=== PATIENT | male | born 1960 ===

== ENCOUNTER 2021-03-18 10:36 | Inpatient (IN) | payer OTHER ==
[~2021-03-18] VITALS: Ht 185.5 cm; Wt 163.6 kg
[2021-03-18 11:35] LABS: HEMATOCRIT 45 % (40-54); HEMOGLOBIN 14.4 g/dL (13.3-17.7); MEAN CORPUSCULAR HEMOGLOBIN 27 pg (25-34); MEAN CORPUSCULAR HGB CONC 32 g/dL (32-36); MEAN CORPUSCULAR VOLUME 85 fL (80-99); MEAN PLATELET VOLUME 8.6 fL (9.0-12.2); PLATELET COUNT 324 10^3/uL (130-400); WHITE BLOOD COUNT 14.8 10^3/uL (4.3-11.0)
[2021-03-18 11:37] LABS: ALBUMIN 4.1 GM/DL (3.2-4.5); CHLORIDE 103 MMOL/L (98-107); POTASSIUM 4.5 MMOL/L (3.6-5.0); SODIUM 139 MMOL/L (135-145)
[2021-03-18 11:38] LABS: CALCIUM 9.5 MG/DL (8.5-10.1)
[2021-03-18 11:40] LABS: GLUCOSE 284 MG/DL (70-105); TOTAL PROTEIN 7.7 GM/DL (6.4-8.2)
[2021-03-18 11:41] LABS: BILIRUBIN,TOTAL 0.5 MG/DL (0.1-1.0); CARBON DIOXIDE 24 MMOL/L (21-32)
[2021-03-18 11:43] LABS: ALKALINE PHOSPHATASE 58 U/L (40-136)
[2021-03-18 11:44] LABS: CREATININE SERUM 1.07 MG/DL (0.60-1.30); GFR ESTIMATED 70
[2021-03-18 11:45] LABS: BILIRUBIN,DIRECT 0.2 MG/DL (0.0-0.3); BILIRUBIN,INDIRECT 0.3 MG/DL; BUN/CREATININE RATIO 13
[2021-03-18] MEDS ORDERED: fentaNYL INJ 100 MCG/2 ML AMP IVP ONE ×5 (11:45→15:30)
[2021-03-18] MEDS ORDERED: HOLD METFORMIN - RECEIVED CONTRAST 20 ML VIAL IV SCH ×2 (11:45→12:15)
[2021-03-18] MEDS ORDERED: NS 100 ML (IVPB) BAG IV ONE ×2 (11:45→12:15)
[2021-03-18] MEDS ORDERED: CATHETER FLUSH 10 ML SYR IV PRN ×3 (11:45→15:45)
[2021-03-18] MEDS ORDERED: IOHEXOL 350 MG/ML 100 ML (OMNIPAQUE 350) VIAL IV ONE ×2 (11:45→12:15)
[2021-03-18 11:46] LABS: ALANINE AMINOTRANSFERASE 36 U/L (0-55)
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
[2021-03-18 13:32] LABS: BILIRUBIN,URINE NEGATIVE (NEGATIVE); CLARITY,URINE CLEAR; COLOR,URINE YELLOW; GLUCOSE, URINE (UA) 3+ (NEGATIVE); KETONES,URINE NEGATIVE (NEGATIVE); LEUKOCYTE ESTERASE ,URINE NEGATIVE (NEGATIVE); NITRITE,URINE NEGATIVE (NEGATIVE); PH,URINE 5.5 (5-9); PROTEIN,URINE NEGATIVE (NEGATIVE)
[2021-03-18] MEDS ORDERED: ONDANSETRON 4 MG/2 ML (SDV) Z0FRAN IVP ONE (14:00)
[2021-03-18 14:14] LABS: RBC,URINE RARE /HPF
[2021-03-18 14:15] LABS: BACTERIA,URINE TRACE /HPF; SQUAMOUS EPITHELIAL CELL,UR 0-2 /HPF
[2021-03-18 14:22] LABS: HYALINE CASTS, URINE RARE /LPF
[2021-03-18 15:30] VITALS: BP 160/78
[2021-03-18] MEDS: HYDROcodone/APAP 5 MG/325 MG (LORTAB) TAB PO SCH ×3 (15:52→23:55)
[2021-03-18] MEDS: LACTATED RINGERS 1,000 ML IV SCH (15:54)
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
[2021-03-18] MEDS: fentaNYL INJ 100 MCG/2 ML AMP IV PRN ×4 (17:36→23:56)
[2021-03-18 20:00] VITALS: BP 116/81
[2021-03-18] MEDS: inSUlin ASPART (NovoLOG) 1 UNIT/0.01 ML (CHARGE PER UNIT) SC SCH ×2 (20:35→21:18)
[2021-03-18 21:03] VITALS: BP 148/80
[2021-03-18] MEDS ORDERED: RT-ALBUTEROL SULF 2.5 MG/3 ML PRE-MIX VIAL INH PRN (21:15)
[2021-03-18] MEDS: ENOXAPARIN 40 MG/0.4 ML (LOVENOX) SYR SC SCH (21:17)
[2021-03-19] VITALS (16 sets, daily range): BP systolic 89–159; BP diastolic 65–89
[2021-03-19] MEDS: fentaNYL INJ 100 MCG/2 ML AMP IV PRN ×10 (01:44→20:19)
[2021-03-19] MEDS: RT-ALBUTEROL SULF 2.5 MG/3 ML PRE-MIX VIAL INH SCH ×4 (02:56→21:43)
[2021-03-19 03:01] LABS: BASOPHILS % (AUTO) 0 % (0-10); EOSINOPHILS # (AUTO) 0.1 10^3/uL (0.0-0.3); EOSINOPHILS % (AUTO) 1 % (0-10); HEMATOCRIT 42 % (40-54); LYMPHOCYTES # (AUTO) 1.9 10^3/uL (1.0-4.0); LYMPHOCYTES % (AUTO) 14 % (12-44); MEAN CORPUSCULAR HEMOGLOBIN 27 pg (25-34); MEAN CORPUSCULAR HGB CONC 31 g/dL (32-36); MEAN CORPUSCULAR VOLUME 87 fL (80-99); MEAN PLATELET VOLUME 8.7 fL (9.0-12.2); MONOCYTES # (AUTO) 1.3 10^3/uL (0.0-1.0); MONOCYTES % (AUTO) 9 % (0-12); NEUTROPHILS # (AUTO) 10.6 10^3/uL (1.8-7.8); NEUTROPHILS % (AUTO) 75 % (42-75); PLATELET COUNT 282 10^3/uL (130-400); WHITE BLOOD COUNT 14.1 10^3/uL (4.3-11.0)
[2021-03-19 03:12] LABS: POTASSIUM 4.7 MMOL/L (3.6-5.0)
[2021-03-19 03:14] LABS: CALCIUM 9.1 MG/DL (8.5-10.1)
[2021-03-19 03:18] LABS: CREATININE SERUM 0.9 MG/DL (0.60-1.30)
[2021-03-19] MEDS: HYDROcodone/APAP 5 MG/325 MG (LORTAB) TAB PO SCH ×5 (03:58→20:19)
[2021-03-19] MEDS: LACTATED RINGERS 1,000 ML IV SCH ×2 (04:03→16:17)
[2021-03-19] MEDS: inSUlin ASPART (NovoLOG) 1 UNIT/0.01 ML (CHARGE PER UNIT) SC SCH ×4 (06:04→20:26)
[2021-03-19] MEDS: ENOXAPARIN 40 MG/0.4 ML (LOVENOX) SYR SC SCH (10:09)
[2021-03-19] MEDS: DOCUSATE SODIUM 100 MG (COLACE) CAP PO SCH (10:10)
[2021-03-19] MEDS ORDERED: POTA10TA PO (10:40)
[2021-03-19] MEDS ORDERED: SITA100T12 PO (10:40)
[2021-03-19] MEDS ORDERED: ERGO1250 PO (10:40)
[2021-03-19] MEDS ORDERED: APIX5TAB PO (10:40)
[2021-03-19] MEDS ORDERED: INSU100I10 SC (10:40)
[2021-03-19] MEDS ORDERED: UBID100C17 PO (10:40)
[2021-03-19] MEDS ORDERED: FISH1CAP15 PO (10:40)
[2021-03-19] MEDS ORDERED: IBUP-1780 PO (10:40)
[2021-03-19] MEDS ORDERED: ROSU5TAB13 PO (10:40)
[2021-03-19] MEDS ORDERED: METF-399 PO (10:40)
[2021-03-19] MEDS ORDERED: FURO20TA4 PO (10:40)
[2021-03-19] MEDS ORDERED: LISI10TA25 PO (10:40)
[2021-03-19] MEDS ORDERED: INSU100I23 SC (10:40)
[2021-03-19] MEDS ORDERED: ASPI-992 PO (10:40)
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
[2021-03-19] MEDS: APIXABAN 5 MG (ELIQUIS) TABLET PO SCH (20:14)
[2021-03-19] MEDS: HYDROmorphone 2 MG/ML VIAL (DILAUDID) IVP PRN (22:39)
[2021-03-20] VITALS: BP 121/80
[2021-03-20] MEDS: HYDROcodone/APAP 5 MG/325 MG (LORTAB) TAB PO SCH ×4 (01:20→11:57)
[2021-03-20] MEDS: RT-ALBUTEROL SULF 2.5 MG/3 ML PRE-MIX VIAL INH SCH ×4 (02:21→21:36)
[2021-03-20 04:24] VITALS: BP 135/83
[2021-03-20] MEDS: HYDROmorphone 2 MG/ML VIAL (DILAUDID) IVP PRN ×4 (04:41→11:57)
[2021-03-20] MEDS: LACTATED RINGERS 1,000 ML IV SCH ×2 (04:44→20:32)
[2021-03-20] MEDS: inSUlin ASPART (NovoLOG) 1 UNIT/0.01 ML (CHARGE PER UNIT) SC SCH ×4 (06:02→20:25)
[2021-03-20 07:12] VITALS: BP 140/67
[2021-03-20] MEDS: APIXABAN 5 MG (ELIQUIS) TABLET PO SCH ×2 (09:22→20:25)
[2021-03-20] MEDS: DOCUSATE SODIUM 100 MG (COLACE) CAP PO SCH (09:22)
[2021-03-20] MEDS: ONDANSETRON 4 MG/2 ML (SDV) Z0FRAN IVP PRN ×2 (10:02→14:30)
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
[2021-03-20 11:14] VITALS: BP 138/65
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
[2021-03-20] MEDS: fentaNYL INJ 100 MCG/2 ML AMP IVP PRN ×3 (14:05→23:37)
--- NOTE | 2021-03-20 15:01 | Physical Therapy Daily Note ---
PT Daily Note-Current Subjective Patient agrees to PT. Mental Status Patient Orientation: Normal For Age Attachments: Oxygen, IV Transfers SCALE: Activities may be completed with or without assistive devices. 1-Sezkjgxiab-vzadyaw completes the activity by him/herself with no assistance from a helper. 5-Set-up or Clean-up Assistance-helper sets up or cleans up; patient completes activity. [place] assists only prior to or following the activity. 4-Supervision or Touching Assistance-helper provides verbal cues and/or touching/steadying and/or contact guard assistance as patient completes activity. Assistance may be provided throughout the activity or intermittently. 3-Partial/Moderate Assistance-helper does LESS THAN HALF the effort. [place] lifts, holds or supports trunk or limbs, but provides less than half the effort. 2-Substantial/Maximal Assistance-helper does MORE THAN HALF the effort. [place] lifts or holds trunk or limbs and provides more than half the effort. 4-Gdkskswdq-dbfudt does ALL the effort. Patient does none of the effort to complete the activity. Or, the assistance of 2 or more helpers is required for the patient to complete the activity. If activity was not attempted, code reason: 7-Patient Refused. 9-Not Applicable-not attempted and the patient did not perform the activity before the current illness, exacerbation or injury. 10-Not Attempted due to Environmental Limitations-(lack of equipment, weather restraints, etc.). 88-Not Attempted due to Medical Conditions or Safety Concerns. Sit to Lying (QC): 1 (x 2) Sit to Stand (QC): 1 (x 2) Chair/Clp-py-Fvsdp Xfer(QC): 2 patient unable to perform due to left side pain Gait Training Does the Patient Walk?: Yes Distance: 20' Walk 10 feet (QC): 3 Gait Assistive Device: FWW slow, decreased rashawn Treatments Multiple attempts to have patient perform sit to supine, however, patient had increase in resistance and difficulty with following direction. Patient becomes slightly agitated during session. He did vomit after receiving IV pain medication. RN notified. Assessment Improved ambulation. Limited due to pain. PT Energy Sales Consultant Goals Detention Goals PT Detention Goals Time Frame: Mar 28, 2021 Roll Left & Right (QC): 4 Sit to Lying (QC): 4 Lying-Sitting on Side/Bed(QC): 4 Sit to Stand (QC): 4 Chair/Wot-py-Zssgo Xfer(QC): 4 Does the Patient Walk: Yes Walk 10 feet (QC): 4 Walk 50ft with 2 Turns (QC): 4 Walk 150 ft (QC): 4 PT Plan Treatment/Plan Treatment Plan: Continue Plan of Care Treatment Plan: Bed Mobility, Education, Functional Activity Johan, Functional Strength, Gait, Safety, Therapeutic Exercise, Transfers Treatment Duration: Mar 28, 2021 Frequency: 11 times per week Estimated Hrs Per Day: .5 hour per day Patient and/or Family Agrees t: Yes Time/GCodes Time In: 1405 Time Out: 1430 Total Billed Treatment Time: 25 Total Billed Treatment 1 visit GT 9 min FA 16 min STEPHANIE MCKEON PT Mar 20, 2021 15:01
[2021-03-20 16:00] VITALS: BP 151/77
[2021-03-20] MEDS: HYDROcodone/APAP 7.5 MG/325 MG (LORTAB, LORCET PLUS) TABLET PO PRN ×2 (16:20→20:25)
--- NOTE | 2021-03-20 17:01 | Diagnostic Imaging Report ---
Indication: Pulmonary contusions. Findings: Fullness in the mediastinum is improved, left rib fractures again noted. No pneumothorax. No substantial pleural fluid volume. The heart size upper limits but stable. Impression: Likely at least some degree of resorption of known mediastinal hematoma, rib fractures present with no pneumothorax. No adverse interval development. Dictated on workstation # [id number]
[2021-03-20 19:28] VITALS: BP 171/80
[2021-03-21] VITALS (7 sets, daily range): BP systolic 119–164; BP diastolic 67–78
[2021-03-21] MEDS: ONDANSETRON 4 MG/2 ML (SDV) Z0FRAN IVP PRN (01:21)
[2021-03-21] MEDS: RT-ALBUTEROL SULF 2.5 MG/3 ML PRE-MIX VIAL INH SCH ×2 (02:25→10:15)
[2021-03-21] MEDS: HYDROcodone/APAP 7.5 MG/325 MG (LORTAB, LORCET PLUS) TABLET PO PRN ×4 (03:19→20:06)
[2021-03-21] MEDS: fentaNYL INJ 100 MCG/2 ML AMP IVP PRN ×3 (04:12→14:31)
[2021-03-21 05:47] LABS: BASOPHILS % (AUTO) 0 % (0-10); EOSINOPHILS # (AUTO) 0.1 10^3/uL (0.0-0.3); EOSINOPHILS % (AUTO) 0 % (0-10); HEMATOCRIT 40 % (40-54); HEMOGLOBIN 12.3 g/dL (13.3-17.7); LYMPHOCYTES # (AUTO) 1.4 10^3/uL (1.0-4.0); LYMPHOCYTES % (AUTO) 7 % (12-44); MEAN CORPUSCULAR HEMOGLOBIN 27 pg (25-34); MEAN CORPUSCULAR HGB CONC 31 g/dL (32-36); MEAN CORPUSCULAR VOLUME 88 fL (80-99); MEAN PLATELET VOLUME 9.2 fL (9.0-12.2); MONOCYTES # (AUTO) 1.7 10^3/uL (0.0-1.0); MONOCYTES % (AUTO) 9 % (0-12); NEUTROPHILS # (AUTO) 16.1 10^3/uL (1.8-7.8); NEUTROPHILS % (AUTO) 83 % (42-75); PLATELET COUNT 267 10^3/uL (130-400); WHITE BLOOD COUNT 19.4 10^3/uL (4.3-11.0)
[2021-03-21] MEDS: inSUlin ASPART (NovoLOG) 1 UNIT/0.01 ML (CHARGE PER UNIT) SC SCH ×6 (06:10→20:45)
[2021-03-21 06:54] LABS: BAND NEUTROPHILS 3 %; EOSINOPHILS % (MANUAL) 1 %; LYMPHOCYTES % (MANUAL) 8 %; MONOCYTES % (MANUAL) 8 %; NEUTROPHILS % (MANUAL) 80 %
[2021-03-21] MEDS: APIXABAN 5 MG (ELIQUIS) TABLET PO SCH ×2 (08:17→20:07)
[2021-03-21] MEDS: DOCUSATE SODIUM 100 MG (COLACE) CAP PO SCH ×2 (08:17→20:07)
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
[2021-03-21] MEDS: LACTATED RINGERS 1,000 ML IV SCH (10:56)
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
[2021-03-21] MEDS ORDERED: lisINopril 10 MG (PRINIVIL) TABLET PO NR (11:45)
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
[2021-03-21] MEDS ORDERED: INSULIN LISPRO 14 UNIT SC SCH (16:00)
[2021-03-21] MEDS: metFORMIN 500 MG (GLUCOPHAGE) TAB PO SCH (18:12)
[2021-03-21] MEDS: polyethylene glycoL POWDER 17 GM (MIRALAX) PACK PO SCH (20:07)
[2021-03-21] MEDS ORDERED: [UNRECOGNIZED DRUG - OTHER] SC SCH (21:00)
[2021-03-21] MEDS ORDERED: INSULIN GLARGINE HUM REC ANLOG 80 UNIT SC SCH (21:00)
[2021-03-21] MEDS ORDERED: NON-FORMULARY MEDICATION 1 EA EA (Metformin HCl 1,000 MG) PO SCH (21:00)
[2021-03-22] VITALS: BP 124/60
[2021-03-22 04:12] VITALS: BP 148/84
[2021-03-22] MEDS: HYDROcodone/APAP 7.5 MG/325 MG (LORTAB, LORCET PLUS) TABLET PO PRN ×2 (05:57→09:58)
[2021-03-22] MEDS: inSUlin ASPART (NovoLOG) 1 UNIT/0.01 ML (CHARGE PER UNIT) SC SCH ×8 (05:58→20:38)
[2021-03-22 07:59] VITALS: BP 159/74
[2021-03-22] MEDS: APIXABAN 5 MG (ELIQUIS) TABLET PO SCH ×2 (08:26→20:03)
[2021-03-22] MEDS: DOCUSATE SODIUM 100 MG (COLACE) CAP PO SCH ×2 (08:26→20:03)
[2021-03-22] MEDS: ROSUVASTATIN 5 MG (CRESTOR) TABLET PO SCH (08:26)
[2021-03-22] MEDS: FUROSEMIDE 20 MG (LASIX) TAB PO SCH (08:26)
[2021-03-22] MEDS: lisINopril 10 MG (PRINIVIL) TABLET PO SCH (08:26)
[2021-03-22] MEDS: KCL 10 MEQ TAB (MICRO K) PO SCH (08:26)
[2021-03-22] MEDS: metFORMIN 500 MG (GLUCOPHAGE) TAB PO SCH ×2 (08:26→17:21)
[2021-03-22] MEDS ORDERED: NON-FORMULARY MEDICATION 1 EA EA (Sitagliptin Phosphate (Januvia) 100 MG) PO SCH (09:00)
[2021-03-22] MEDS: ONDANSETRON 4 MG/2 ML (SDV) Z0FRAN IVP PRN ×2 (09:58→20:12)
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
[2021-03-22] MEDS: fentaNYL INJ 100 MCG/2 ML AMP IVP PRN (10:59)
[2021-03-22] MEDS ORDERED: METOCLOPRAMIDE INJ 10 MG/2 ML (REGLAN) IVP PRN (12:00)
[2021-03-22 12:17] VITALS: BP 171/78
[2021-03-22 16:00] VITALS: BP 157/74
[2021-03-22] MEDS: oxyCODONE/APAP 7.5-325 MG (PERCOCET 7.5) TABLET PO PRN (16:03)
[2021-03-22 20:00] VITALS: BP 144/70
[2021-03-22] MEDS: PANTOPRAZOLE 40 MG (PROTONIX) VIAL IV SCH (20:03)
[2021-03-22] MEDS: polyethylene glycoL POWDER 17 GM (MIRALAX) PACK PO SCH (20:03)
[2021-03-23] VITALS: BP 128/79
[2021-03-23] MEDS: ONDANSETRON 4 MG/2 ML (SDV) Z0FRAN IVP PRN ×3 (03:43→23:48)
[2021-03-23] MEDS: oxyCODONE/APAP 7.5-325 MG (PERCOCET 7.5) TABLET PO PRN ×4 (03:43→18:09)
[2021-03-23 04:00] VITALS: BP 158/87
[2021-03-23 05:27] LABS: BASOPHILS % (AUTO) 0 % (0-10); EOSINOPHILS # (AUTO) 0.4 10^3/uL (0.0-0.3); EOSINOPHILS % (AUTO) 3 % (0-10); HEMATOCRIT 40 % (40-54); HEMOGLOBIN 12.2 g/dL (13.3-17.7); LYMPHOCYTES # (AUTO) 2.1 10^3/uL (1.0-4.0); LYMPHOCYTES % (AUTO) 16 % (12-44); MEAN CORPUSCULAR HEMOGLOBIN 27 pg (25-34); MEAN CORPUSCULAR HGB CONC 31 g/dL (32-36); MEAN CORPUSCULAR VOLUME 87 fL (80-99); MEAN PLATELET VOLUME 8.7 fL (9.0-12.2); MONOCYTES # (AUTO) 1.1 10^3/uL (0.0-1.0); MONOCYTES % (AUTO) 9 % (0-12); NEUTROPHILS # (AUTO) 9.3 10^3/uL (1.8-7.8); NEUTROPHILS % (AUTO) 71 % (42-75); PLATELET COUNT 295 10^3/uL (130-400); WHITE BLOOD COUNT 13.1 10^3/uL (4.3-11.0)
[2021-03-23] MEDS: inSUlin ASPART (NovoLOG) 1 UNIT/0.01 ML (CHARGE PER UNIT) SC SCH ×8 (06:57→20:31)
[2021-03-23] MEDS: metFORMIN 500 MG (GLUCOPHAGE) TAB PO SCH ×2 (08:27→16:52)
[2021-03-23] MEDS: DOCUSATE SODIUM 100 MG (COLACE) CAP PO SCH ×2 (08:28→20:30)
[2021-03-23] MEDS: FUROSEMIDE 20 MG (LASIX) TAB PO SCH (08:28)
[2021-03-23] MEDS: KCL 10 MEQ TAB (MICRO K) PO SCH (08:28)
[2021-03-23] MEDS: APIXABAN 5 MG (ELIQUIS) TABLET PO SCH ×2 (08:28→20:30)
[2021-03-23] MEDS: lisINopril 10 MG (PRINIVIL) TABLET PO SCH (08:28)
[2021-03-23] MEDS: PANTOPRAZOLE 40 MG (PROTONIX) VIAL IV SCH ×2 (08:29→20:30)
[2021-03-23] MEDS: ROSUVASTATIN 5 MG (CRESTOR) TABLET PO SCH (08:40)
[2021-03-23 08:41] VITALS: BP 183/82
--- NOTE | 2021-03-23 09:14 | Physical Therapy Daily Note ---
PT Daily Note-Current Subjective Patient agrees to PT. Pain Numeric Pain Scale: 10-Worst Possible Pain Location: Left Location Body Site: Side Pain Description: Stabbing, Sharp Comment: with pain pill issued Mental Status Patient Orientation: Normal For Age Attachments: Oxygen Transfers SCALE: Activities may be completed with or without assistive devices. 9-Xitqajwrnl-ttunrhn completes the activity by him/herself with no assistance from a helper. 5-Set-up or Clean-up Assistance-helper sets up or cleans up; patient completes activity. [place] assists only prior to or following the activity. 4-Supervision or Touching Assistance-helper provides verbal cues and/or touching/steadying and/or contact guard assistance as patient completes activit y. Assistance may be provided throughout the activity or intermittently. 3-Partial/Moderate Assistance-helper does LESS THAN HALF the effort. [place] lifts, holds or supports trunk or limbs, but provides less than half the effort. 2-Substantial/Maximal Assistance-helper does MORE THAN HALF the effort. [place] lifts or holds trunk or limbs and provides more than half the effort. 8-Oihczrekf-lofmyh does ALL the effort. Patient does none of the effort to complete the activity. Or, the assistance of 2 or more helpers is required for the patient to complete the activity. If activity was not attempted, code reason: 7-Patient Refused. 9-Not Applicable-not attempted and the patient did not perform the activity before the current illness, exacerbation or injury. 10-Not Attempted due to Environmental Limitations-(lack of equipment, weather restraints, etc.). 88-Not Attempted due to Medical Conditions or Safety Concerns. Lying to Sitting/Side of Bed(Q: 4 (SBA) Sit to Stand (QC): 4 (SBA) Chair/Uoe-tg-Mmbab Xfer(QC): 4 (SBA) Gait Training Distance: 125' Walk 10 feet (QC): 4 (SBA) Walk 50 ft with 2 Turns(QC): 4 (SBA) Gait Assistive Device: FWW safe and functional with no deviation Assessment Patient up in recliner with needs met. Much improved mobility on this date. PT Mcc Goals Car Painter Goals PT Mcc Goals Time Frame: Mar 28, 2021 Roll Left & Right (QC): 4 Sit to Lying (QC): 4 Lying-Sitting on Side/Bed(QC): 4 Sit to Stand (QC): 4 Chair/Rro-mp-Hybkv Xfer(QC): 4 Does the Patient Walk: Yes Walk 10 feet (QC): 4 Walk 50ft with 2 Turns (QC): 4 Walk 150 ft (QC): 4 PT Plan Treatment/Plan Treatment Plan: Continue Plan of Care Treatment Plan: Bed Mobility, Education, Functional Activity Johan, Functional Strength, Gait, Safety, Therapeutic Exercise, Transfers Treatment Duration: Mar 28, 2021 Frequency: 11 times per week Estimated Hrs Per Day: .5 hour per day Patient and/or Family Agrees t: Yes Time/GCodes Time In: 837 Time Out: 850 Total Billed Treatment Time: 13 Total Billed Treatment 1 visit FA 13 min STEPHANIE MCKEON PT Mar 23, 2021 09:14
[2021-03-23] MEDS: fentaNYL INJ 100 MCG/2 ML AMP IVP PRN (10:52)
[2021-03-23 12:50] VITALS: BP 144/65
[2021-03-23] MEDS: IBUPROFEN 600 MG (MOTRIN) TAB PO PRN (13:41)
--- NOTE | 2021-03-23 14:03 | Physical Therapy Daily Note ---
PT Daily Note-Current Subjective Patient states, "How many times to I have to see you in one day?" Patient agrees to PT. Pain Numeric Pain Scale: 10-Worst Possible Pain Location: Left Location Body Site: Chest Pain Description: Stabbing, Sharp Mental Status Patient Orientation: Normal For Age Transfers SCALE: Activities may be completed with or without assistive devices. 7-Qksywdbenx-wfctagx completes the activity by him/herself with no assistance from a helper. 5-Set-up or Clean-up Assistance-helper sets up or cleans up; patient completes activity. [place] assists only prior to or following the activity. 4-Supervision or Touching Assistance-helper provides verbal cues and/or touching/steadying and/or contact guard assistance as patient completes activity. Assistance may be provided throughout the activity or intermittently. 3-Partial/Moderate Assistance-helper does LESS THAN HALF the effort. [place] li fts, holds or supports trunk or limbs, but provides less than half the effort. 2-Substantial/Maximal Assistance-helper does MORE THAN HALF the effort. [place] lifts or holds trunk or limbs and provides more than half the effort. 1-Mllobuixo-igrtyv does ALL the effort. Patient does none of the effort to complete the activity. Or, the assistance of 2 or more helpers is required for the patient to complete the activity. If activity was not attempted, code reason: 7-Patient Refused. 9-Not Applicable-not attempted and the patient did not perform the activity before the current illness, exacerbation or injury. 10-Not Attempted due to Environmental Limitations-(lack of equipment, weather restraints, etc.). 88-Not Attempted due to Medical Conditions or Safety Concerns. Sit to Lying (QC): 2 Sit to Stand (QC): 4 (CGA) Gait Training Does the Patient Walk?: Yes Distance: 150' in room Walk 10 feet (QC): 4 (SBA) Walk 50 ft with 2 Turns(QC): 4 (SBA) Walk 150 ft (QC): 4 (SBA) Gait Assistive Device: FWW safe and functional with no deviation Treatments Patient requires time to complete all functional tasks. Patient appears to self limit due to pain and becomes highly agitated and yells at staff and family. Assessment Improved mobility. Continued uncontrolled rib pain and left shoulder pain. Pat ient self limited left shoulder ROM and use due to pain. PT Diamond Die Maker Goals Diamond Die Maker Goals PT Skilled Nursing Goals Time Frame: Mar 28, 2021 Roll Left & Right (QC): 4 Sit to Lying (QC): 4 Lying-Sitting on Side/Bed(QC): 4 Sit to Stand (QC): 4 Chair/Dno-fp-Cyzeh Xfer(QC): 4 Does the Patient Walk: Yes Walk 10 feet (QC): 4 Walk 50ft with 2 Turns (QC): 4 Walk 150 ft (QC): 4 PT Plan Treatment/Plan Treatment Plan: Continue Plan of Care Treatment Plan: Bed Mobility, Education, Functional Activity Johan, Functional Strength, Gait, Safety, Therapeutic Exercise, Transfers Treatment Duration: Mar 28, 2021 Frequency: 11 times per week Estimated Hrs Per Day: .5 hour per day Patient and/or Family Agrees t: Yes Time/GCodes Time In: 1328 Time Out: 1345 Total Billed Treatment Time: 17 Total Billed Treatment 1 visit FA 17 min STEPHANIE MCKEON PT Mar 23, 2021 14:02
[2021-03-23 15:35] VITALS: BP 148/72
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
[2021-03-23 20:00] VITALS: BP 130/65
[2021-03-23] MEDS: polyethylene glycoL POWDER 17 GM (MIRALAX) PACK PO SCH (20:30)
[2021-03-24] VITALS: BP 141/73
[2021-03-24 03:27] VITALS: BP 135/66
[2021-03-24] MEDS: inSUlin ASPART (NovoLOG) 1 UNIT/0.01 ML (CHARGE PER UNIT) SC SCH ×6 (05:49→17:46)
[2021-03-24] MEDS: ONDANSETRON 4 MG/2 ML (SDV) Z0FRAN IVP PRN ×2 (05:50→09:47)
[2021-03-24] MEDS: oxyCODONE/APAP 7.5-325 MG (PERCOCET 7.5) TABLET PO PRN ×4 (05:50→17:46)
[2021-03-24 05:55] LABS: BASOPHILS # (AUTO) 0.1 10^3/uL (0.0-0.1); BASOPHILS % (AUTO) 0 % (0-10); EOSINOPHILS # (AUTO) 0.5 10^3/uL (0.0-0.3); EOSINOPHILS % (AUTO) 4 % (0-10); HEMATOCRIT 40 % (40-54); HEMOGLOBIN 12.2 g/dL (13.3-17.7); LYMPHOCYTES # (AUTO) 1.3 10^3/uL (1.0-4.0); LYMPHOCYTES % (AUTO) 11 % (12-44); MEAN CORPUSCULAR HEMOGLOBIN 27 pg (25-34); MEAN CORPUSCULAR HGB CONC 31 g/dL (32-36); MEAN CORPUSCULAR VOLUME 89 fL (80-99); MEAN PLATELET VOLUME 8.6 fL (9.0-12.2); MONOCYTES % (AUTO) 8 % (0-12); NEUTROPHILS # (AUTO) 8.8 10^3/uL (1.8-7.8); NEUTROPHILS % (AUTO) 73 % (42-75); PLATELET COUNT 280 10^3/uL (130-400); WHITE BLOOD COUNT 12.1 10^3/uL (4.3-11.0)
[2021-03-24 08:00] VITALS: BP 126/78
[2021-03-24] MEDS: DOCUSATE SODIUM 100 MG (COLACE) CAP PO SCH (08:14)
[2021-03-24] MEDS: PANTOPRAZOLE 40 MG (PROTONIX) VIAL IV SCH (08:14)
[2021-03-24] MEDS: APIXABAN 5 MG (ELIQUIS) TABLET PO SCH (08:14)
[2021-03-24] MEDS: KCL 10 MEQ TAB (MICRO K) PO SCH (08:14)
[2021-03-24] MEDS: ROSUVASTATIN 5 MG (CRESTOR) TABLET PO SCH (08:14)
[2021-03-24] MEDS: FUROSEMIDE 20 MG (LASIX) TAB PO SCH (08:14)
[2021-03-24] MEDS: metFORMIN 500 MG (GLUCOPHAGE) TAB PO SCH ×2 (08:14→17:45)
[2021-03-24] MEDS: lisINopril 10 MG (PRINIVIL) TABLET PO SCH (08:14)
--- NOTE | 2021-03-24 11:41 | Physical Therapy Daily Note ---
PT Daily Note-Current Subjective Patient initially declined PT. After much encouragement, patient reluctantly agrees. Patient reports he is not going to do anything at home due to pain and states, "I'd rather than have this pain." PT educated patient on the pain he is experiencing is temporary and he will recover, however, it is a choice to move and increase activity. Pain Numeric Pain Scale: 10-Worst Possible Pain Location: Left Location Body Site: Side Pain Description: Stabbing, Sharp Mental Status Patient Orientation: Normal For Age Transfers SCALE: Activities may be completed with or without assistive devices. 1-Uiyeddxjgy-rlmemkq completes the activity by him/herself with no assistance from a helper. 5-Set-up or Clean-up Assistance-helper sets up or cleans up; patient completes activity. [place] assists only prior to or following the activity. 4-Supervision or Touching Assistance-helper provides verbal cues and/or touching/steadying and/or contact guard assistance as patient completes activity. Assistance may be provided throughout the activity or intermittently. 3-Partial/Moderate Assistance-helper does LESS THAN HALF the effort. [place] lif ts, holds or supports trunk or limbs, but provides less than half the effort. 2-Substantial/Maximal Assistance-helper does MORE THAN HALF the effort. [place] lifts or holds trunk or limbs and provides more than half the effort. 9-Nnvhjofsb-niqlmi does ALL the effort. Patient does none of the effort to complete the activity. Or, the assistance of 2 or more helpers is required for the patient to complete the activity. If activity was not attempted, code reason: 7-Patient Refused. 9-Not Applicable-not attempted and the patient did not perform the activity before the current illness, exacerbation or injury. 10-Not Attempted due to Environmental Limitations-(lack of equipment, weather restraints, etc.). 88-Not Attempted due to Medical Conditions or Safety Concerns. Sit to Stand (QC): 4 (SBA) Chair/Sqi-rv-Fwsrx Xfer(QC): 4 (SBA) Gait Training Does the Patient Walk?: Yes Distance: 150' Walk 10 feet (QC): 5 Walk 50 ft with 2 Turns(QC): 5 Walk 150 ft (QC): 5 Gait Assistive Device: FWW safe and functional with no deviation Assessment Patient up in recliner with needs met. Spouse present. Patient very agitated during session. PT Correction Goals Correction Goals PT Correction Goals Time Frame: Mar 28, 2021 Roll Left & Right (QC): 4 Sit to Lying (QC): 4 Lying-Sitting on Side/Bed(QC): 4 Sit to Stand (QC): 4 Chair/Rvd-rv-Jcpyi Xfer(QC): 4 Does the Patient Walk: Yes Walk 10 feet (QC): 4 Walk 50ft with 2 Turns (QC): 4 Walk 150 ft (QC): 4 PT Plan Treatment/Plan Treatment Plan: Continue Plan of Care Treatment Plan: Bed Mobility, Education, Functional Activity Johan, Functional Strength, Gait, Safety, Therapeutic Exercise, Transfers Treatment Duration: Mar 28, 2021 Frequency: 11 times per week Estimated Hrs Per Day: .5 hour per day Patient and/or Family Agrees t: Yes Time/GCodes Time In: 1055 Time Out: 1110 Total Billed Treatment Time: 15 Total Billed Treatment 1 visit FA 15 min STEPHANIE MCKEON PT Mar 24, 2021 11:41
[2021-03-24 12:00] VITALS: BP 121/75
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
--- NOTE | 2021-03-24 14:32 | Physical Therapy Daily Note ---
PT Daily Note-Current Subjective Patient again declined PT, however, does agree after much encouragement. Patient continues to report he will not do anything at home. Pain Numeric Pain Scale: 10-Worst Possible Pain Location: Left Location Body Site: Side Pain Description: Stabbing, Sharp Mental Status Patient Orientation: Normal For Age Transfers SCALE: Activities may be completed with or without assistive devices. 3-Irkusmyjga-hgbreyi completes the activity by him/herself with no assistance from a helper. 5-Set-up or Clean-up Assistance-helper sets up or cleans up; patient completes activity. Adams assists only prior to or following the activity. 4-Supervision or Touching Assistance-helper provides verbal cues and/or touching/steadying and/or contact guard assistance as patient completes activity. Assistance may be provided throughout the activity or intermittently. 3-Partial/Moderate Assistance-helper does LESS THAN HALF the effort. Adams lifts, holds or supports trunk or limbs, but provides less than half the effort. 2-Substantial/Maximal Assistance-helper does MORE THAN HALF the effort. Adams lifts or holds trunk or limbs and provides more than half the effort. 8-Qjjfhjnow-zvtxys does ALL the effort. Patient does none of the effort to complete the activity. Or, the assistance of 2 or more helpers is required for the patient to complete the activity. If activity was not attempted, code reason: 7-Patient Refused. 9-Not Applicable-not attempted and the patient did not perform the activity before the current illness, exacerbation or injury. 10-Not Attempted due to Environmental Limitations-(lack of equipment, weather restraints, etc.). 88-Not Attempted due to Medical Conditions or Safety Concerns. Sit to Stand (QC): 4 Gait Training Does the Patient Walk?: Yes Distance: 150' Walk 10 feet (QC): 4 (SBA) Walk 50 ft with 2 Turns(QC): 4 (SBA) Walk 150 ft (QC): 4 (SBA) Gait Assistive Device: FWW functional with FWW Treatments Patient education on importance of ambulating and exercising to improve LOF and decrease pain. Patient argues that the pain will always be there and he will not do anything at home. Education with patient on possible/probable negative outcomes if he does not continue to ambulate and perform OOB activity. Spouse present. Assessment Patient is mobile when highly encouraged. Patient does argue and reports he will not comply with activity at home. Spouse present for all discussions. SW notified. PT Fpc Goals Fpc Goals PT Station Mechanic Goals Time Frame: Mar 28, 2021 Roll Left & Right (QC): 4 Sit to Lying (QC): 4 Lying-Sitting on Side/Bed(QC): 4 Sit to Stand (QC): 4 Chair/Vci-mi-Nlyid Xfer(QC): 4 Does the Patient Walk: Yes Walk 10 feet (QC): 4 Walk 50ft with 2 Turns (QC): 4 Walk 150 ft (QC): 4 PT Plan Treatment/Plan Treatment Plan: Continue Plan of Care Treatment Plan: Bed Mobility, Education, Functional Activity Johan, Functional Strength, Gait, Safety, Therapeutic Exercise, Transfers Treatment Duration: Mar 28, 2021 Frequency: 11 times per week Estimated Hrs Per Day: .5 hour per day Patient and/or Family Agrees t: Yes Time/GCodes Time In: 1330 Time Out: 1343 Total Billed Treatment Time: 13 Total Billed Treatment 1 visit FA 13 min STEPHANIE MCKEON PT Mar 24, 2021 14:32
[2021-03-24] MEDS ORDERED: OXYC1TAB12 PO (15:27)
--- NOTE | 2021-03-24 15:28 | Discharge Inst-Surgical ---
D/C Lap Instructions-NATHALIEO New, Converted, or Re-Newed RX: RX on Chart Follow Up with PMD in one week. ambulate at least BID Activity as tolerated No driving for 24 hours No [address] while on pain medications Incentive Spirometry use every 2 hours while awake Regular Diet Symptoms to Report: Fever over 101 degree F, Nausea/Vomiting Infection Signs and Symptoms to report: Increased redness, Foul odor of wound, Increased drainage Bathing instructions: May shower Operative Area Clean/Dry; Keep incision clean/dry If any problems/questions: Contact your physician or go to Emergency Room JASMEET LARA MD Mar 24, 2021 15:27
[2021-03-24] MEDS: IBUPROFEN 600 MG (MOTRIN) TAB PO PRN (15:32)
[2021-03-24 15:59] VITALS: BP 125/82
--- NOTE | 2021-03-24 17:21 | D/C HH Face to Face Order ---
D/C Face to Face Orders Instructions for Patient Via [facility], Patient Instructions/FollowUp: F/U with primary care physician in 1 week. Physician to follow Patient: primary care physician Discharge Diet for Home: ADA Diet Patient Data-Allergies,Ht & Wt Patient Allergies: Coded Allergies: No Known Drug Allergies (Unverified , 03/18/21) Home Health Need/Face to Face Date of Face to Face: Mar 24, 2021 Clinical Findings: Generalized weakness and fatigue, Muscle weakness, Pain with ambulation, Shortness of breath, Other-list in note (morbid obesity) I have seen Pt [id number]: Yes Discharged To: Home Diagnosis/Conditions: multiple fractured left rib fractures and right upper pulmonary contusion Patient is Homebound due to: Muscle weakness, Pain w/ambulation, Shortness of breath/distress Homebound Status Due to the above stated illness, injury or surgical procedure (medical condition or diagnosis) and associated clinical findings, the patient is homebound because of his/her inability to leave home except with aid of a supportive device and/or person AND leaving the home requires a considerable and taxing effort or is medically contraindicated. Pt req the following assistanc: Aid of another person, Walker Home Health Nursing Orders Home Health Services Order: Nursing Services, Exhibit Artist-Evaluate & Treat, Physical Therapy-Evaluate & Treat Home Health Infusion Therapy Line Start Date: Mar 18, 2021 Therapy Orders delay of start no later than 72 hours. Certify Stmt I certify that this patient is under my care and that I, a nurse practitioner or a physician; a printer's assistant working with me, had a face to face encounter that - meets the physician face to face encounter requirements with this patient as dated. JASMEET LARA MD Mar 24, 2021 17:21
[2021-03-24 18:00] VITALS: BP 125/82
[2021-03-24] MEDS ORDERED: polyethylene glycoL POWDER 17 GM (MIRALAX) PACK PO SCH (21:00)
== END 2021-03-24 18:01 | disposition home health service (06) | DRG 183 ==
LOC: ER 10:37 → ICU 14:50 → 4TH 03-19 14:55
PROVIDERS: ADMIT Surgery; ATTEND Surgery
DX: S22.42XA Multiple fractures of ribs, left side, initial encounter for closed fracture (principal); S27.1XXA Traumatic hemothorax, initial encounter; S27.321A Contusion of lung, unilateral, initial encounter; Z68.42 Body mass index [BMI] 45.0-49.9, adult; M25.512 Pain in left shoulder; E66.01 Morbid (severe) obesity due to excess calories; E11.9 Type 2 diabetes mellitus without complications; I10 Essential (primary) hypertension; K59.00 Constipation, unspecified; Z86.711 Personal history of pulmonary embolism; Z86.718 Personal history of other venous thrombosis and embolism; Z79.01 Long term (current) use of anticoagulants; Z79.82 Long term (current) use of aspirin; Z79.4 Long term (current) use of insulin; V48.5XXA Car driver injured in noncollision transport accident in traffic accident, initial encounter
CPT/HCPCS: 36415; 70450; 71045; 71260; 72125; 73030; 74177; 80048; 80076; 80320; 81000; 82947; 85007; 85025; 85027; 87081; 93005; 93041; 94640; 94660; 94760; 96374; 96375; 96376